=== PATIENT | female | born 1985 | race Caucasian/White ===

== ENCOUNTER 2018-09-24 07:57 | Emergency (ER) | payer OTHER ==
[~2018-09-24] VITALS: Ht 167.6 cm; Wt 51.7 kg
[2018-09-24 08:08] VITALS: Ht 167.6 cm; Wt 51.7 kg
[2018-09-24 10:47] VITALS: BP 100/66
== END 2018-09-24 11:07 | disposition home or self-care (01) ==
LOC: ED 07:57
DX: O26.891 Other specified pregnancy related conditions, first trimester (principal); G43.909 Migraine, unspecified, not intractable, without status migrainosus; Z3A.08 8 weeks gestation of pregnancy
CPT/HCPCS: J1200; J2765; J7030

== ENCOUNTER 2018-09-27 06:33 | Emergency (ER) | payer OTHER ==
[~2018-09-27] VITALS: Ht 167.6 cm; Wt 51.3 kg
[2018-09-27 06:37] VITALS: Ht 167.6 cm; Wt 51.3 kg
[2018-09-27 08:16] VITALS: BP 104/68
== END 2018-09-27 08:31 | disposition home or self-care (01) ==
LOC: ED 06:33
DX: O21.9 Vomiting of pregnancy, unspecified (principal); Z3A.08 8 weeks gestation of pregnancy
CPT/HCPCS: J2765

== ENCOUNTER 2018-10-20 14:15 | Emergency (ER) | payer OTHER ==
[~2018-10-20] VITALS: Ht 167.6 cm; Wt 48.1 kg
[2018-10-20 14:31] VITALS: Ht 167.6 cm; Wt 48.1 kg
[2018-10-20 16:02] LABS: BASOPHIL % 0.7 % (0-2); PLATELET COUNT 233 x10^3mcL (130-400); RED CELL DISTRIBUTION WIDTH 12.6 % (11.5-14.5)
[2018-10-20 16:24] LABS: CALCIUM 8.8 mg/dL (8.5-10.1); CARBON DIOXIDE 21.6 mmol/L (21-32); CHLORIDE SERUM 105 mmol/L (98-107); CREATININE SERUM 0.5 mg/dL (0.6-1.0); GFR1 > 60 mL/min; GLUCOSE SERUM 74 mg/dL (74-106); POTASSIUM SERUM 4.3 mmol/L (3.5-5.1); SODIUM SERUM 140 mmol/L (136-145)
[2018-10-20 16:29] LABS: ALBUMIN 3.5 g/dL (3.4-5.0); ALKALINE PHOSPHATASE 49 U/L (46-116); ALT/SGPT 56 U/L (14-59); AMYLASE 70 U/L (25-115); AST/SGOT 26 U/L (15-37); BILIRUBIN TOTAL 0.68 mg/dL (0.20-1.00); LIPASE 96 IU/L (73-393); TOTAL PROTEIN, SERUM 6.7 g/dL (6.4-8.2)
[2018-10-20 18:50] VITALS: BP 108/53
== END 2018-10-20 18:56 | disposition home or self-care (01) ==
LOC: ED 14:15
PROVIDERS: Specialist
DX: O21.0 Mild hyperemesis gravidarum (principal); Z3A.11 11 weeks gestation of pregnancy
CPT/HCPCS: J2550; J7030